=== PATIENT | female | born 1950 | race Caucasian/White ===

== ENCOUNTER 2017-09-03 00:48 | Inpatient (IN) ==
[2017-09-03] MEDS ORDERED: *HR* Morphine 2 MG/ML SYRINGE IVP PRN (06:01)
[2017-09-03] MEDS: 0.9 % Sodium Chloride 1,000 ML IVC SCH ×2 (06:29→18:48)
[2017-09-03] MEDS ORDERED: Ondansetron 4 MG/2 ML VIAL IVP PRN (08:35)
--- NOTE | 2017-09-03 08:42 | Internal Med History&Physical ---
Date of Encounter: 09/03/17 Time of Encounter: 08:40 Assessment and Plan (1) Liver cirrhosis, alcoholic Current visit: Yes Status: Acute Patient has alcoholic liver cirrhosis with some laboratory evidence of decompensated synthetic functions of the liver. INR 1.4. total bilirubin is 2.2. Qualifiers: Qualified Code(s): K70.30 - Alcoholic cirrhosis of liver without ascites (2) Diabetes mellitus type 2 in nonobese Current visit: Yes Status: Acute Sliding scale insulin every 4 hours. (3) COPD (chronic obstructive pulmonary disease) Current visit: Yes Status: Acute Stable no active wheezing continue home inhalers. Qualifiers: Qualified Code(s): J44.9 - Chronic obstructive pulmonary disease, unspecified (4) Femur fracture, right Current visit: No Status: Acute After mechanical fall. We will discuss case with orthopedics. INR is 1.4. keep NPO. Qualifiers: Qualified Code(s): S72.91XA - Unspecified fracture of right femur, initial encounter for closed fracture (5) Preoperative clearance Current visit: Yes Status: Acute Patient has a functional capacity. Clinical predictors include diabetes mellitus. She denies history of coronary artery disease. Can walk approximately 2 blocks or central flights of stairs. She denies any exertional chest pain. I will check 12 lead EKG. If OK there should be no need for further preoperative cardiac testing. Continue perioperative beta blockers (6) Hyponatremia Current visit: Yes Status: Acute Likely related to liver cirrhosis. follow. Gentle hydration while NPO Internal Medicine - H&P: HPI Chief complaint: fall, right hip pain History of present illness: Ms. Nguyen is a 66 year old female presents to the emergency room yesterday after a fall. After the patient entered her house she slipped and fell on a wooden floor on her right side. She experienced pain in the right hip region and was unable to bear weight after the fall. She denies loss of consciousness or head trauma. She denies any frequent falls. She denies any recent illnesses. She denies any focal upper or lower extremity weakness. She was found to have a right femoral neck fracture. Patient has a history of alcoholic liver cirrhosis, COPD not on home oxygen, recently diagnosed type II diabetes mellitus. She stopped drinking alcohol close to 2 years ago and is cutting down on smoking to 1 pack of cigarettes every week Past Med Surg Social Fam HX - Past Medical History Medical history: cirrhosis, GERD, hypertension, liver disease Psychiatric history: no psych history - Past Surgical History Surgical History: cholecystectomy, hysterectomy - Social History Smoking Status: Current every day smoker Packs per day: 0.1 Smokeless Tobacco Status: No Alcohol use: none Drug use: none - Family History Father History Unknown: Yes Mother Living Status: Age at : 77 Hx Family Respiratory Disorders: Yes (COPD) Internal Medicine - H&P: Meds Albuterol Sulfate [Albuterol Inhaler] 1 puff IH Q6HR PRN 09/02/17 [History] Atorvastatin [Lipitor] 20 mg PO HS 09/02/17 [History] Furosemide [Lasix] 40 mg PO DAILY 09/02/17 [History] Lactulose [Enulose] 300 ml PO TID 09/02/17 [History] Magnesium Oxide [Mgo] 400 mg PO DAILY 09/02/17 [History] Nadolol [Corgard] 40 mg PO BID 09/02/17 [History] Omeprazole [PriLOSEC] 20 mg PO BID 09/02/17 [History] Rifaximin [Xifaxan] 550 mg PO BID 09/02/17 [History] Tiotropium [Spiriva] 18 mcg IH DAILY 09/02/17 [History] Zinc Sulfate 220 mg PO DAILY 09/02/17 [History] 3 Allergy/AdvReac Type Severity Reaction Status Date / Time NSAIDS (Non-Steroidal AdvReac See Verified 09/02/17 21:41 Anti-Inflamma Comments All Systems PM: A 10-system review of systems was performed and is negative for pertinent findings except as documented above in the HPI. Review of systems: 10 point review of systems is negative except for HPI - Constitutional Vitals: Temp Pulse Resp BP Pulse Ox 98.7 F 81 16 118/64 97 09/03/17 06:36 09/03/17 06:36 09/03/17 06:36 09/03/17 06:36 09/03/17 06:36 Exam: Gen.: patient is alert oriented times 3 not in distress. Cardiac: normal S1 S2 no additional sounds are murmurs. Chest: clear to auscultation. Abdomen: soft nontender nondistended. Lower extremity no swelling mucous membranes: moist
[2017-09-03] MEDS ORDERED: Magnesium Oxide 400 MG TABLET PO SCH (09:00)
[2017-09-03] MEDS ORDERED: Tiotropium 18 MCG inhalation IH SCH (09:00)
[2017-09-03 10:20] LABS: Basophils % 0.5 %; Eosinophils # 0.1 K/mcL (0.0-0.6); Hematocrit 30.1 % (35.3-44.9); Immature Granulocytes % 0.5 % (0-4); Lymphocytes # 0.6 K/mcL (0.6-4.6); Lymphocytes % 9.9 %; Mean Corpuscular HGB Conc 33.2 g/dL (31.6-35.5); Mean Corpuscular Hemoglobin 27.9 pg (28.0-33.3); Mean Corpuscular Volume 83.8 fL (83.0-100.0); Mean Platelet Volume 11.2 fL (9.4-12.4); Monocytes # 0.6 K/mcL (0.0-1.3); Monocytes % 9.6 %; Neutrophils # 4.7 K/mcL (1.6-8.9); Platelet Count 80 K/mcL (140-400); Red Blood Count 3.59 M/mcL (3.82-4.97); Red Cell Distribution Width 17.2 % (11.5-14.5); Segmented Neutrophils % 77.5 %
[2017-09-03 10:25] LABS: INR 1.4; Prothrombin Time 15.3 Seconds (9.4-12.1)
[2017-09-03] MEDS: *HR* Morphine 2 MG/ML SYRINGE IVP PRN ×2 (10:26→16:07)
[2017-09-03 10:43] LABS: BUN/Creatinine Ratio 15 (6-26); Blood Urea Nitrogen 11 mg/dL (8-23); Calcium 8.9 mg/dL (8.6-10.3); Carbon Dioxide 23 mEq/L (23-29); Chloride 94 mEq/L (98-107); Glucose 328 mg/dL (70-105); Magnesium 1.5 mg/dL (1.6-2.6); Osmolality,Calculated 272 (280-300); Sodium 125 mEq/L (136-145); eGFR For African Americans > 60 (> 60); eGFR For Non-African Americans > 60 (> 60)
[2017-09-03] MEDS: Lactulose Oral Soln 20 GM/30 ML UDC PO SCH ×3 (10:54→21:47)
[2017-09-03] MEDS: Insulin LISPRO 300 UNITS/3 ML VIAL SQ SCH ×3 (12:39→21:02)
--- NOTE | 2017-09-03 14:42 | Cardiology Consult Note ---
<Andrew Woodson R - Last Filed: 09/03/17 14:38> Date of Encounter: 09/03/17 Time of Encounter: 14:38 Assessment and Plan (1) Pre-operative cardiovascular examination Current Visit: Yes Status: Acute Cardiac pre-op risk stratification requested for potential surgery for right femoral neck fracture. No known cardiac hx. Risk factors for CAD include tobacco abuse, DM, HTN, family hx. Prior to fall and subsequent fx, pt reports she was able to achieve 4METS without experiencing chest pain. She does endorse exertional dyspnea that she attributes to smoking/COPD, no worse than baseline. Prior ETOH abuse as well. Appears euvolemic on exam. Echo to evaluate heart structure and function. If no significant findings on echo pt would be acceptable intermediate risk from a cardiac standpoint to undergo orthopedic surgery. Will discuss with Dr. Marino as well. (2) Hyponatremia Current Visit: Yes Status: Acute Prior ETOH abuse. Management per primary team. (3) Tobacco abuse Current Visit: Yes Status: Chronic Smoking cessation counseling given. Discussion w patient/family: The assessment and plan as outlined above was discussed with the patient and/or family members who expressed understanding and agreement. All questions were answered. Thank you for involving us in the care of your patient. Please call with any questions. I will discuss all the above with Dr. Marino and make changes as necessary. History of Present Illness Consult date: 09/03/17 Requesting physician: Abimael Peña Consult reason: Pre-op risk stratification Chief complaint: hip pain History of present illness: Ms. Nguyen is a 66 year old female with PMH of liver cirrhosis, HTN, hx of ETOH abuse reportedly quit 2 years ago, COPD, recently diagnosed DMII, tobacco abuse, that presentsed to the emergency room yesterday after a fall. Pt reports she was carrying groceries into her house when she slipped and fell on a wooden floor on her right side. She experienced pain in the right hip region and was unable to bear weight after the fall. She denies loss of consciousness or head trauma. She denies any frequent falls. She was found to have a right femoral neck fracture. Cardiology has been consulted for pre-op risk stratification. Pt reports having a stress test >20 years ago at an outside facility. She denies any personal cardiac hx. She reports exertional dyspnea, but denies chest pain. She reports her sister had an CO at age 62. EKG SR. She denies LE edema. Past Med Surg Social Fam HX - Past Medical History Medical history: cirrhosis, GERD, hypertension, liver disease Psychiatric history: no psych history - Past Surgical History Surgical History: cholecystectomy, hysterectomy - Social History Smoking Status: Current every day smoker Packs per day: 0.1 Smokeless Tobacco Status: No Alcohol use: none Drug use: none - Family History Father History Unknown: Yes Mother Living Status: Age at : 77 Hx Family Respiratory Disorders: Yes (COPD) Medications and Allergies Albuterol Sulfate [Albuterol Inhaler] 1 puff IH Q6HR PRN 09/02/17 [History] Atorvastatin [Lipitor] 20 mg PO HS 09/02/17 [History] Furosemide [Lasix] 40 mg PO DAILY 09/02/17 [History] Lactulose [Enulose] 30 ml PO TID 09/02/17 [History] Magnesium Oxide [Mgo] 400 mg PO DAILY 09/02/17 [History] Nadolol [Corgard] 40 mg PO BID 09/02/17 [History] Omeprazole [PriLOSEC] 20 mg PO BID 09/02/17 [History] Rifaximin [Xifaxan] 550 mg PO BID 09/02/17 [History] Tiotropium [Spiriva] 18 mcg IH DAILY 09/02/17 [History] Zinc Sulfate 220 mg PO DAILY 09/02/17 [History] 3 Allergy/AdvReac Type Severity Reaction Status Date / Time NSAIDS (Non-Steroidal AdvReac See Verified 09/03/17 10:01 Anti-Inflamma Comments All Systems Review: A 10-system review of systems was performed and is negative for pertinent findings except as documented above in the HPI. - Cardiovascular Cardiovascular: as per HPI, dyspnea on exertion - Respiratory Respiratory: dyspnea Physical Examination Vital Signs Temp Pulse Resp BP Pulse Ox 09/03/17 10:28 98.6 F 73 16 133/64 97 09/03/17 10:00 97 09/03/17 06:36 98.7 F 81 16 118/64 97 09/03/17 02:36 98.8 F 73 18 116/59 96 Intake and Output 09/02/17 09/03/17 09/03/17 23:59 07:59 15:59 Other: Weight 55.792 kg Blood Glucose* 328 Patient Weight 09/03/17 23:59 Weight 55.792 kg General: Conversant, No Apparent Distress HEENT: Atraumatic, Normocephaly, Mucus Membranes Moist Neck: No JVD, Normal carotid pulses Cardiac: Reg Rate and Rhythm, Normal S1 and S2, No Murmur Lungs: Normal Breath Sounds, No Wheeze, Rales, Rhonchi Neuro: Alert and responsive, No focal deficits noted Abdomen: Soft, Non-Tender Skin: No rashes noted on visualized skin Musculoskeletal: No Chest Wall Tenderness Extremities: No Clubbing, No Cyanosis, No Edema, Normal Pulses Results 09/03/17 10:01 09/03/17 10:01 Lab Results 09/03/17 09/03/17 09/03/17 10:01 10:01 10:01 WBC 6.0 Hgb 10.0 L Hct 30.1 L Plt Count 80 L INR 1.4 APTT 32.0 Sodium 125 L Potassium 4.0 Chloride 94 L Carbon Dioxide 23 BUN 11 Creatinine 0.74 Glucose 328 H Calcium 8.9 Magnesium 1.5 L Short CBC 09/03/17 Range/Units 10:01 WBC 6.0 (4.3-11.1) K/mcL Hgb 10.0 L (11.5-15.4) g/dL Hct 30.1 L (35.3-44.9) % Plt Count 80 L (140-400) K/mcL Neutrophils # 4.7 (1.6-8.9) K/mcL BMP 09/03/17 Range/Units 10:01 Sodium 125 L (136-145) mEq/L Potassium 4.0 (3.5-5.1) mEq/L Chloride 94 L (98-107) mEq/L Carbon Dioxide 23 (23-29) mEq/L BUN 11 (8-23) mg/dL Creatinine 0.74 (0.60-1.20) mg/dL Glucose 328 H (70-105) mg/dL Calcium 8.9 (8.6-10.3) mg/dL Active Medications Albuterol Sulfate (Albuterol Inhaler) 1 puff IH [id number] PRN PRN Reason: Shortness Of Breath Stop: 03/05/18 10:01 Atorvastatin Calcium (Lipitor) 20 mg PO HS [facility] Stop: 03/05/18 21:01 Famotidine (Pepcid) 10 mg IVP Q12HR [facility] PRN Reason: Protocol Stop: 03/05/18 18:01 Sodium Chloride (0.9 % Sodium Chloride) 1,000 mls @ 80 mls/hr IVC .[id number] [facility] Stop: 03/05/18 06:16 Last Admin: 09/03/17 06:29 Dose: 80 mls/hr Insulin Human Lispro (Humalog) 0 units SQ Q4HR [facility] PRN Reason: Protocol Stop: 03/05/18 12:01 Last Admin: 09/03/17 12:39 Dose: 10 units Lactulose (Lactulose) 20 gm PO TID [facility] Stop: 03/05/18 09:01 Last Admin: 09/03/17 13:43 Dose: Not Given Magnesium Oxide (Mag-Ox) 400 mg PO DAILY [facility] PRN Reason: Protocol Stop: 03/05/18 09:01 Last Admin: 09/03/17 10:55 Dose: Not Given Morphine Sulfate (Morphine Sulfate) 2 mg IVP Q4H PRN PRN Reason: Pain Stop: 03/05/18 06:02 Last Admin: 09/03/17 10:26 Dose: 2 mg Nadolol (Corgard) 40 mg PO BID [facility] Stop: 03/05/18 11:29 Last Admin: 09/03/17 11:42 Dose: 40 mg Omeprazole (Prilosec) 20 mg PO BID [facility] PRN Reason: Protocol Stop: 03/05/18 09:01 Last Admin: 09/03/17 10:55 Dose: Not Given Ondansetron HCl (Zofran) 4 mg IVP Q6HR PRN; Protocol PRN Reason: Nausea Stop: 03/05/18 08:36 Rifaximin (Xifaxan) 550 mg PO BID [facility] Stop: 03/05/18 09:01 Last Admin: 09/03/17 10:56 Dose: Not Given Tiotropium [place] (Spiriva) 18 mcg IH DAILY [facility] Stop: 03/05/18 09:01 Last Admin: 09/03/17 10:50 Dose: Not Given - EKG Interpretation EKG results cardiology: personally reviewed (SR) Consult Discharge Plan - Plan Referrals: NONE,PCP [Primary Care Provider] - <Marion Marino - Last Filed: 09/03/17 20:14> Date of Encounter: 09/03/17 - Attending Attestation I examined this patient and my medical decision-making was reviewed with the MAIL COURIER. I agree with the documented findings, disposition and treatment plan as described. We have been asked by orthopedic surgery to provide a cardiovascular risk stratification for Ms. Nguyen prior to potential surgery for a right femoral neck fracture. She presented yesterday after a mechanical fall. She denies any cardiac history. She has not had any recent chest pain or palpitations. She admits to being able to achieve at least 4 mets prior to this event. Risk factors for cardiovascular disease include smoking, diabetes, hypertension and family history. ECG demonstrates no concerning findings. Recommend echo for risk stratification. Ischemic testing does not appear warranted and would likely delay her surgical procedure. According to both RCRI and NSQIP, patient is at low risk for CV complications. Assessment and Plan Discussion w patient/family: The assessment and plan as outlined above was discussed with the patient and/or family members who expressed understanding and agreement. All questions were answered. Thank you for involving us in the care of your patient. Please call with any questions. History of Present Illness History of present illness: Ms. Nguyen is a 66 year old female All Systems Review: A 10-system review of systems was performed and is negative for pertinent findings except as documented above in the HPI. Physical Examination Vital Signs, Last 4 Hours Temp Pulse Resp BP Pulse Ox 09/03/17 19:00 98.8 F 74 16 101/59 98 Results 09/03/17 10:01 09/03/17 10:01 Lab Results 09/03/17 09/03/17 09/03/17 10:01 10:01 10:01 WBC 6.0 Hgb 10.0 L Hct 30.1 L Plt Count 80 L INR 1.4 APTT 32.0 Sodium 125 L Potassium 4.0 Chloride 94 L Carbon Dioxide 23 BUN 11 Creatinine 0.74 Glucose 328 H Calcium 8.9 Magnesium 1.5 L
--- NOTE | 2017-09-03 16:41 | Orthopedic Consult Note ---
Date of Encounter: 09/03/17 Time of Encounter: 16:33 History of Present Illness Chief complaint: Right hip pain HPI: Ms. Nguyen is a 66 year old female who slipped and fell yesterday evening when she got into her daughter's home and she had some water on her feet. She slipped on a hardwood floor, landing on her right hip. She had immediate pain and was unable to ambulate or weight-bear. She was brought to [facility] emergency room where x-rays revealed evidence of a right hip fracture. She was transferred to [facility] for definitive treatment. Patient does have a significant past medical history of alcohol related cirrhosis with the sequelae of such including esophageal varices, coagulopathy, and hyponatremia amongst others. The patient also was recently diagnosed with type 2 diabetes. Please see the completed history and physical examination form for details. Pertinent orthopedic examination reveals a thin white female in moderate distress secondary to right hip pain. No gross shortening or rotational deformities identified. Distal neurosensory exam appears to be grossly intact. Laboratory data includes a hemoglobin of 10.0, platelets of 80, a pro time of 15.3 a sodium of 125 current blood sugar of 213 and elevated bilirubin of 2.2. X-rays reveal a intertrochanteric type fracture of the right proximal femur. There is only mild displacement mostly manifested by some rotational changes and no wart appears to be some shortening. Patient does have rather significant vascular calcifications. Impression: Acute intertrochanteric fracture right proximal femur in female with significant alcohol-related cirrhosis Recommendation: I discussed with the patient and family treatment options including nonoperative management as well as surgical intervention. I do not think that nonoperative management is viable treatment for her as this would require prolonged bed rest which would create some onset of problems including skin breakdown and pulmonary complications. The other option would be to proceed with a trochanteric femoral nail stabilization. We discussed the surgical procedure as well as the potential risks and complications including but not limited to bleeding, infection, blood clots, nerve injury, stiffness, malunion, nonunion, leg length or rotational deformities and the distinct possibility of avascular necrosis. Patient and family understand have requested we proceed with intramedullary nailing of her right hip. She has signed informed consent. Awaiting a echocardiogram and final risk stratification by cardiology to proceed with surgical dimension, and scheduled for later today when operating time is available. Thank you very much for allowing me to see care 4 Mrs. Nguyen. Sincerely, Laci Yap,DO Past Med Surg Social Fam HX - Past Medical History Medical history: cirrhosis, GERD, hypertension, liver disease Psychiatric history: no psych history - Past Surgical History Surgical History: cholecystectomy, hysterectomy - Social History Smoking Status: Current every day smoker Packs per day: 0.1 Smokeless Tobacco Status: No Alcohol use: none Drug use: none - Family History Father History Unknown: Yes Mother Living Status: Age at : 77 Hx Family Respiratory Disorders: Yes (COPD) Medications and Allergies Albuterol Sulfate [Albuterol Inhaler] 1 puff IH Q6HR PRN 09/02/17 [History] Atorvastatin [Lipitor] 20 mg PO HS 09/02/17 [History] Furosemide [Lasix] 40 mg PO DAILY 09/02/17 [History] Lactulose [Enulose] 30 ml PO TID 09/02/17 [History] Magnesium Oxide [Mgo] 400 mg PO DAILY 09/02/17 [History] Nadolol [Corgard] 40 mg PO BID 09/02/17 [History] Omeprazole [PriLOSEC] 20 mg PO BID 09/02/17 [History] Rifaximin [Xifaxan] 550 mg PO BID 09/02/17 [History] Tiotropium [Spiriva] 18 mcg IH DAILY 09/02/17 [History] Zinc Sulfate 220 mg PO DAILY 09/02/17 [History] 3 Allergy/AdvReac Type Severity Reaction Status Date / Time NSAIDS (Non-Steroidal AdvReac See Verified 09/03/17 10:01 Anti-Inflamma Comments All Systems Reviewed: A 10-system review of systems was performed and is negative for pertinent findings except as documented above in the HPI. Physical Exam - Constitutional Vitals: Temp Pulse Resp BP Pulse Ox 98.4 F 78 16 127/68 98 09/03/17 14:00 09/03/17 14:00 09/03/17 14:00 09/03/17 14:00 09/03/17 14:00 Results - Labs Result Diagrams: 09/03/17 10:01 09/03/17 10:01 Labs: Abnormal lab results RBC 3.59 M/mcL (3.82-4.97) L 09/03/17 10:01 Hgb 10.0 g/dL (11.5-15.4) L 09/03/17 10:01 Hct 30.1 % (35.3-44.9) L 09/03/17 10:01 MCH 27.9 pg (28.0-33.3) L 09/03/17 10:01 RDW 17.2 % (11.5-14.5) H 09/03/17 10:01 Plt Count 80 K/mcL (140-400) L 09/03/17 10:01 PT 15.3 Seconds (9.4-12.1) H 09/03/17 10:01 Sodium 125 mEq/L (136-145) L 09/03/17 10:01 Chloride 94 mEq/L (98-107) L 09/03/17 10:01 Glucose 328 mg/dL (70-105) H 09/03/17 10:01 POC Glucose 308 (58-89) H 09/03/17 04:27 Calculated Osmolality 272 (280-300) L 09/03/17 10:01 Magnesium 1.5 mg/dL (1.6-2.6) L 09/03/17 10:01 H & H 09/03/17 Range/Units 10:01 Hgb 10.0 L (11.5-15.4) g/dL Hct 30.1 L (35.3-44.9) % All other labs normal. Consult Discharge Plan - Plan Referrals: NONE,PCP [Primary Care Provider] -
[2017-09-03] MEDS ORDERED: Famotidine 20 MG/2 ML VIAL IVP SCH (18:00)
--- NOTE | 2017-09-03 21:32 | Anesthesia Evaluation PreOp ---
Date of Encounter: 09/03/17 Time of Encounter: 22:03 - Past History Planned Operation: Right hip TFN Cardiac History: HTN, Hyperlipidemia Pulmonary History: Smoker SPUDDER History: Denies Any Significant HX Other Medical History: Hepatic (cirrhosis; INR 1.4), Diabetes Type II, GERD (hx of esophageal varices s/p banding), Other (thrombocytopenia; slight coagulopathy (INR 1.4)) Anesthesia History: No Prior Anesthetic Complications, Past Anesthesia ( cholecystectomy, hysterectomy, breast lump resection) Alcohol Use: none Drug use: none Medications and Allergies Albuterol Sulfate [Albuterol Inhaler] 1 puff IH Q6HR PRN 09/02/17 [History] Atorvastatin [Lipitor] 20 mg PO HS 09/02/17 [History] Furosemide [Lasix] 40 mg PO DAILY 09/02/17 [History] Lactulose [Enulose] 30 ml PO TID 09/02/17 [History] Magnesium Oxide [Mgo] 400 mg PO DAILY 09/02/17 [History] Nadolol [Corgard] 40 mg PO BID 09/02/17 [History] Omeprazole [PriLOSEC] 20 mg PO BID 09/02/17 [History] Rifaximin [Xifaxan] 550 mg PO BID 09/02/17 [History] Tiotropium [Spiriva] 18 mcg IH DAILY 09/02/17 [History] Zinc Sulfate 220 mg PO DAILY 09/02/17 [History] 3 Allergy/AdvReac Type Severity Reaction Status Date / Time NSAIDS (Non-Steroidal AdvReac See Verified 09/03/17 10:01 Anti-Inflamma Comments - Meds/Allergy Pre-op Review Medications Reviewed: Yes Allergies Reviewed: Yes Beta Blockers on Current Med List: Yes (nadolol) If Beta Blockers taken, Date/Time (Last Dose taken): 09-03-17 nadolol 21:02 Anesthesia Results - Labs 09/03/17 10:01 09/03/17 10:01 - Imaging EKG: report reviewed, image reviewed (SR) Additional studies: Per Cardiology consult: We have been asked by orthopedic surgery to provide a cardiovascular risk stratification for Ms. Nguyen prior to potential surgery for a right femoral neck fracture. She presented yesterday after a mechanical fall. She denies any cardiac history. She has not had any recent chest pain or palpitations. She admits to being able to achieve at least 4 mets prior to this event. Risk factors for cardiovascular disease include smoking, diabetes, hypertension and family history. ECG demonstrates no concerning findings. Recommend echo for risk stratification. Ischemic testing does not appear warranted and would likely delay her surgical procedure. According to both RCRI and NSQIP, patient is at low risk for CV complications. Anesthesia Exam Last Vital Signs Temp 98.8 F 09/03/17 19:00 Pulse 74 09/03/17 19:00 Resp 16 09/03/17 19:00 BP 101/59 09/03/17 19:00 Pulse Ox 98 09/03/17 19:00 - HEENT Pupil (Motor): Pupils equal, EOMI Mallampati: III Teeth: Edentulous Oral Opening: Greater than 3 - SPUDDER LOC: Oriented - Cardiac Rhythm: Regular Murmur: None - Pulmonary Breath Sounds: bilateral Clear Respiratory Effort: Symmetrical Anesthesia Assess/Plan ASA Score: 4 Modified [place] Scale for Level of Consciousness: Cooperative, oriented, and tranquil Anesthetic Plan: General Monitoring Plan: Standard Monitors Recovery Plan: PACU
[2017-09-03] MEDS ORDERED: *HR* Propofol 200 MG/20 ML VIAL IVP ONE (21:41)
[2017-09-03] MEDS ORDERED: Lidocaine -MPF 2% 2 ML VIAL ONE (21:41)
[2017-09-03] MEDS ORDERED: *HR* Succinylcholine 200 MG/10 ML VIAL IVP ONE (21:42)
[2017-09-03] MEDS ORDERED: *HR* Midazolam HCl 2 MG/2 ML VIAL ONE (21:46)
[2017-09-03] MEDS ORDERED: *HR* FentaNYL (PF) 100 MCG/2 ML VIAL ONE (21:46)
[2017-09-03] MEDS ORDERED: *HR* HYDROmorphone (PF) 1 MG/ML SYRINGE IVP PRN (21:49)
[2017-09-03] MEDS ORDERED: Albuterol 2.5 MG/3 ML NEBULIZER IH ONE (21:52)
[2017-09-03] MEDS ORDERED: Albuterol 2.5 MG/3 ML NEBULIZER ONE (21:52)
[2017-09-03] MEDS ORDERED: Ringers Solution, Lactated 1,000 ML ONE (21:52)
[2017-09-03] MEDS ORDERED: *HR* Phenylephrine 10 MG/ML VIAL ONE (22:39)
[2017-09-03] MEDS ORDERED: *HR* Rocuronium Bromide 50 MG/5 ML VIAL ONE (22:46)
[2017-09-03] MEDS ORDERED: Neostigmine Methylsulfate 3 MG/3 ML SYRINGE ONE (22:46)
[2017-09-03] MEDS ORDERED: Ondansetron 4 MG/2 ML VIAL ONE (22:51)
[2017-09-03] MEDS ORDERED: Dexamethasone 4 MG/ML VIAL ONE (22:51)
[2017-09-03] MEDS ORDERED: EPHEDrine 50 MG/ML VIAL ONE (22:57)
--- NOTE | 2017-09-04 00:25 | Operative Note ---
Date of procedure: 09/03/17 Pre-op diagnosis: Intertrochanteric fracture right hip Post-op diagnosis: same Procedure: #1. Intramedullary nailing right hip #2. Fluoroscopic guidance for IM nailing right hip Implants: Synthes 11 mm x 170 mm x 130 degree angle TFNA, 11 mm x 95 mm TFNA helical blade and a 34 mm x 5.0 mm distal locking screw Complications: None Anesthesia: GETA Surgeon: Laci Yap Was there an physician's assistant present: No Estimated blood loss (cc): 50 Specimen: None Condition: stable Disposition: PACU Procedure in Detail: Gross findings: Preoperative x-rays revealed a intertrochanteric fracture of the right proximal femur. There was some varus angulation and rotation. Intraoperatively fracture was able to be reduced into anatomic position and stabilized with a trochanteric femoral nail. Anatomic congregation was maintained as verified with multiplanar fluoroscopy. Procedure: Patient was taken to the operating room and while in the hospital bed was administered general anesthesia. With adequate level of anesthesia obtained patient was transferred to the [facility] fracture table. Right lower extremity was placed in longitudinal traction left lower extremity was positioned out of harm's way and well leg valderrama. Fluoroscopy was now introduced and utilized to guide the preliminary reduction with a combination of traction ADD duction and internal rotation. Once adequate reduction had been obtained the right hip was prepped and draped in normal standard fashion for surgery. Approximately 3 cm incision was created above the level of the trochanter. Dissection was carried through subtendinous tissue down the level of the tensor fascia cony which was split. Dissection was carried directly down to the tip of the trochanter. Guidewire was passed to the tip of the trochanter down the femoral canal. The coring type reamer was used to open up the proximal trochanter. The selected nail was then placed onto the insertion jig, passed over the wire and seated into position. At this time the 130 degree guide was used to create an incision over the lateral femur and the guide was positioned up against the lateral cortex. Guide pin was then placed in a central position as verified with multiplane fluoroscopy. Pin length was measured and a 95 mm helical blade was selected. Head and neck were then reamed. Helical blade was then placed and impacted and seated into position and then locked above. Fracture was compressed with verification with fluoroscopy. At this time utilizing the drill guide a distal locking screw was placed. Final fluoroscopic views were now taken after the insertion jig was removed. Excellent reduction and implant position was noted. At this time wounds were then irrigated and closed with #1 Vicryl in the fascia followed by 2-0 undyed Vicryl immediate subtendinous tissue and then skin closure with 30 strata Ficks. Skin glue was applied followed by operative foam. Patient was then transferred from the operating room table to the hospital bed. Patient was then awakened from anesthesia extubated and transported to the postanesthesia care unit in stable and satisfactory condition. All sponge and needle evidence for counts are correct. No specimens were sent for pathology.
--- NOTE | 2017-09-04 00:47 | Anesthesia Evaluation Post Op ---
Date of Encounter: 09/04/17 Time of Encounter: 00:46 - Vital Signs Vital Signs: Last Vital Signs Temp 97.4 F L 09/04/17 00:30 Pulse 64 09/04/17 00:30 Resp 20 09/04/17 00:30 BP 103/53 09/04/17 00:30 Pulse Ox 92 09/04/17 00:30 - Lungs Lungs: Clear Ascult./Percussion - Airway Airway: Non-obstructed - Cardiovascular Regular Rate - Mental Status Mental Status: Alert & Oriented, Answers Appropriately - Pain Pain Scale: 5 - Nausea Vomiting Nausea Vomiting: Not Present - Hydration Hydration: Ice chips, Astudillo catheter - Discharge PostOp Status: Transfer Patient to floor
[2017-09-04] MEDS ORDERED: Ondansetron 4 MG/2 ML VIAL IVP PRN (00:57)
[2017-09-04] MEDS: ceFAZolin 2,000 MG in Water for inj. (sterile) 20 ML IVP SCH ×2 (03:02→09:31)
[2017-09-04] MEDS: *HR* OxyCODONE Immed Rel 5 MG TABLET PO PRN ×4 (03:11→23:35)
[2017-09-04] MEDS: Famotidine 20 MG/2 ML VIAL IVP SCH ×2 (05:28→17:40)
[2017-09-04] MEDS: Insulin LISPRO 300 UNITS/3 ML VIAL SQ SCH ×5 (05:29→20:50)
[2017-09-04] MEDS: Tiotropium 18 MCG inhalation IH SCH (07:36)
[2017-09-04] MEDS: Lactulose Oral Soln 20 GM/30 ML UDC PO SCH ×3 (09:31→20:49)
[2017-09-04] MEDS: Magnesium Oxide 400 MG TABLET PO SCH (09:31)
[2017-09-04] MEDS: RIFAXIMIN 550 MG PO SCH ×2 (09:32→20:51)
--- NOTE | 2017-09-04 10:23 | Electrocardiograph Report ---
[place] [id number] Test Date: 2017-09-03 Pat Name: Shannan Nguyen Department: 114 Room: [facility] Gender: F Damage Cutter: : 1950 Requested By: Abimael Peña Order Number: [id number] Reading MD: Kwasi Rollins DO Measurements Intervals Palmer Rate: 70 P: 37 MA: 143 QRS: 0 QRSD: 110 T: 20 QT: 429 QTc: 450 Interpretive Statements SINUS RHYTHM NONSPECIFIC ST-T CHANGES Electronically Signed On 09-04-2017 10:21:46 EST by Kwasi Rollins DO
[2017-09-04] MEDS ORDERED: Dextrose Gel 15 GM/37.5 ML TUBE PO PRN ×2 (13:14)
[2017-09-04] MEDS ORDERED: D5% in Water 1,000 ML IVC PRN (13:14)
[2017-09-04] MEDS ORDERED: *HR* Dextrose 50 % in Water (Syg) 50 ML SYRINGE IVP PRN (13:14)
[2017-09-04] MEDS: 0.9 % Sodium Chloride 1,000 ML IVC SCH ×2 (15:59→16:02)
--- NOTE | 2017-09-04 17:26 | Internal Med Progress Note ---
Date of Encounter: 09/04/17 Time of Encounter: 17:24 - Assessment and plan (1) Intertrochanteric fracture of right femur Current Visit: Yes Status: Acute Assessment and plan: Status post nailing done today. Patient doing well. Management per Ortho. Qualifiers: Encounter type: initial encounter Fracture type: closed Fracture alignment: nondisplaced Qualified Code(s): S72.144A - Nondisplaced intertrochanteric fracture of right femur, initial encounter for closed fracture (2) Hyponatremia Current Visit: Yes Status: Acute Assessment and plan: Unsure of patient baseline. Will give gentle IV hydration to avoid over correction in case she runs this low normally. She does not seem to have any change in mental status to suggest acute drop in sodium. (3) Diabetes mellitus type 2 in nonobese Current Visit: Yes Status: Acute Assessment and plan: Diabetic diet, ISS (4) Liver cirrhosis, alcoholic Current Visit: Yes Status: Acute Qualifiers: Qualified Code(s): K70.30 - Alcoholic cirrhosis of liver without ascites (5) COPD (chronic obstructive pulmonary disease) Current Visit: Yes Status: Acute Qualifiers: Qualified Code(s): J44.9 - Chronic obstructive pulmonary disease, unspecified (6) Tobacco abuse Current Visit: Yes Status: Chronic - Subjective Interval history: No complaints, no acute events. Patient status post IM nailing of right hip for right femur fracture, done today. - Constitutional Vitals: Temp Pulse Resp BP Pulse Ox 98.2 F 78 16 103/50 91 09/04/17 16:33 09/04/17 16:33 09/04/17 16:33 09/04/17 16:33 09/04/17 16:33 - Head Head exam: Present: atraumatic, normocephalic - Eye Eye exam: Present: PERRL, conjuntiva pink, sclera anicteric Pupils: Present: PERRL - Neck Neck exam general surgery: Present: supple, trachea midline. Absent: lymphadenopathy - Respiratory Respiratory exam: Present: CTAB. Absent: accessory muscle use, rales, rhonchi, wheezes - Cardiovascular Cardiovascular exam: Present: RRR, +S1, +S2. Absent: diastolic murmur, gallop, rubs, systolic murmur - GI/Abdominal GI/Abdominal exam: Present: normal bowel sounds, soft, no peritoneal signs. Absent: distended, tenderness - Extremities Exam Extremities exam: Present: warm, radial pulses palpable and symmetrical. Absent : calf tenderness, cyanotic, pedal edema - Neurological Exam Neurological exam: Present: CN II-XII intact, oriented X3, no focal deficits. Absent: pronater drift, facial droop, speech deficit - Skin Skin exam: Present: dry, intact Internal Medicine: Result - Labs CBC & Chem 7: 09/03/17 10:01 09/03/17 10:01 - ABG Interpretation ABG results: PT/INR, D-dimer PT 15.3 Seconds (9.4-12.1) H 09/03/17 10:01 - Impressions Impressions Echocardiogram 09/03/17 16:12 Impressions: LVEF 60-65%. Mild left ventricular diastolic dysfunction. Normal right ventricular structure and function. No significant valvular dysfunction. No pulmonary hypertension. Left Ventricular Wall Motion: Rest Echo Findings All wall segments showed normal motion. Findings: Study Quality * Technically somewhat challenging - patient laying supine for exam. Images are angulated. ECG Findings * Normal sinus rhythm. Left Ventricle * LVEF 60-65%. * Normal LV chamber size, wall thickness and function. * Mild left ventricular diastolic dysfunction. Right Ventricle * Normal right ventricular structure and function. Left Atrium * Normal left atrial size. Right Atrium * Normal right atrial size. Aortic Valve * No aortic regurgitation. * No aortic stenosis. * Aortic valve not well visualized. Mitral Valve * Normal mitral valve structure. * No mitral regurgitation. * No mitral stenosis. Tricuspid Valve * Tricuspid valve not well visualized. * Trace tricuspid regurgitation. * Estimated RA pressure is . mmHg. * Estimated RVSP is 20 mmHg. * No pulmonary hypertension. Pulmonic Valve * Pulmonic valve is not well visualized. * No pulmonic stenosis. * No pulmonic regurgitation. Pulmonary Artery * Pulmonary artery not well visualized. Aorta * Normally sized aortic root. Pericardium * There is no pericardial effusion present. Interatrial Septum * No evidence of PFO by color Doppler. IVC * The IVC is not dilated. Fluoroscopy 09/03/17 22:45 IMPRESSION: Intraprocedural fluoroscopic spot images as above. See separate procedure report for more information. D/ / Zeeshan Sanchez MD / Zeeshan Sanchez MD Interpreting Provider: Zeeshan Sanchez MD - VTE Documentation of Mechanical Device: Venous foot pump, device Consult Discharge Plan - Plan Referrals: NONE,PCP [Primary Care Provider] -
--- NOTE | 2017-09-04 19:02 | Orthopedics Progress Note ---
Date of Encounter: 09/04/17 Time of Encounter: 19:00 Subjective Principal diagnosis: Right hip fracture Interval history: 09/04/2017. Patient is postoperative day #1 IM nailing right hip fracture. She is having anticipated pain and soreness about the hip. Otherwise feeling fairly well. Vital signs are stable. She is afebrile. She was are clean and dry. Neurovascular exam is stable. Impression: POD #1 IM nailing right intertrochanteric hip fracture Recommendation: Patient can be weightbearing as tolerated and ambulate ad vicky. PT and OT consults. industrial services worker for discharge planning, possible rehabilitation stay indicated. Patient can shower with intact dressings. Objective Vital signs: Vital Signs Temp Pulse Resp BP Pulse Ox 09/04/17 16:33 98.2 F 78 16 103/50 91 09/04/17 11:54 98.1 F 73 16 105/59 91 09/04/17 07:36 16 94 09/04/17 07:17 98.5 F 77 18 96/57 92 09/04/17 04:49 98.3 F 65 19 107/61 94 09/04/17 01:42 98.4 F 65 19 102/60 93 09/04/17 00:52 98.4 F 64 18 106/63 93 09/04/17 00:30 97.4 F L 64 20 103/53 92 09/04/17 00:20 74 20 106/56 92 09/04/17 00:10 70 20 115/52 92 09/04/17 00:00 98.1 F 73 20 133/62 99 Intake and Output 09/04/17 09/04/17 09/04/17 07:59 15:59 23:59 Intake Total 560 / 560 Output Total 225 / 225 250 / 250 Balance -205 / -205 310 / 310 Intake: IV Fluids Ancef 2,000 MG In Water for inj . (sterile) 20 ML @ 200 mls/hr IVP Q8H [facility] Rx#:[id number] Oral 560 / 560 Output: Urine 250 / 250 Estimated Blood Loss 50 / 50 Urine Amount (Catheter) 175 / 175 Other: Meal Lunch Percent of Meal Consumed 95% Blood Glucose* 255 351 430 - Labs CBC & BMP: 09/03/17 10:01 09/03/17 10:01 Labs: Abnormal lab results RBC 3.59 M/mcL (3.82-4.97) L 09/03/17 10:01 Hgb 10.0 g/dL (11.5-15.4) L 09/03/17 10:01 Hct 30.1 % (35.3-44.9) L 09/03/17 10:01 MCH 27.9 pg (28.0-33.3) L 09/03/17 10:01 RDW 17.2 % (11.5-14.5) H 09/03/17 10:01 Plt Count 80 K/mcL (140-400) L 09/03/17 10:01 PT 15.3 Seconds (9.4-12.1) H 09/03/17 10:01 Sodium 125 mEq/L (136-145) L 09/03/17 10:01 Chloride 94 mEq/L (98-107) L 09/03/17 10:01 Glucose 328 mg/dL (70-105) H 09/03/17 10:01 POC Glucose 351 (58-89) H 09/04/17 11:57 Calculated Osmolality 272 (280-300) L 09/03/17 10:01 Magnesium 1.5 mg/dL (1.6-2.6) L 09/03/17 10:01 - VTE Documentation of Mechanical Device: Venous foot pump, device Consult Discharge Plan - Plan Referrals: NONE,PCP [Primary Care Provider] -
[2017-09-04] MEDS ORDERED: Insulin DETEMIR 100 UNIT/ML X5UNITS SQ SCH (21:00)
[2017-09-05 04:30] LABS: Basophils % 0.2 %
[2017-09-05 04:33] LABS: Eosinophils # 0.1 K/mcL (0.0-0.6); Eosinophils % 0.7 %; Hematocrit 27.3 % (35.3-44.9); Hemoglobin 8.5 g/dL (11.5-15.4); Immature Granulocytes % 0.9 % (0-4); Lymphocytes # 0.8 K/mcL (0.6-4.6); Lymphocytes % 9.4 %; Mean Corpuscular HGB Conc 31.1 g/dL (31.6-35.5); Mean Corpuscular Volume 86.7 fL (83.0-100.0); Mean Platelet Volume 10.6 fL (9.4-12.4); Monocytes # 1.1 K/mcL (0.0-1.3); Monocytes % 13.3 %; Neutrophils # 6.2 K/mcL (1.6-8.9); Red Blood Count 3.15 M/mcL (3.82-4.97); Red Cell Distribution Width 17.5 % (11.5-14.5); Segmented Neutrophils % 75.5 %
[2017-09-05] MEDS: 0.9 % Sodium Chloride 1,000 ML IVC SCH (04:33)
[2017-09-05] MEDS: Famotidine 20 MG/2 ML VIAL IVP SCH ×2 (04:33→16:58)
[2017-09-05 04:41] LABS: BUN/Creatinine Ratio 17 (6-26); Blood Urea Nitrogen 15 mg/dL (8-23); Calcium 8.6 mg/dL (8.6-10.3); Carbon Dioxide 21 mEq/L (23-29); Chloride 101 mEq/L (98-107); Glucose 344 mg/dL (70-105); Osmolality,Calculated 286 (280-300); Platelet Count 78 K/mcL (140-400); Potassium 3.9 mEq/L (3.5-5.1); Sodium 131 mEq/L (136-145); eGFR For African Americans > 60 (> 60); eGFR For Non-African Americans > 60 (> 60)
[2017-09-05] MEDS: *HR* OxyCODONE Immed Rel 5 MG TABLET PO PRN ×3 (05:16→23:58)
[2017-09-05] MEDS: Tiotropium 18 MCG inhalation IH SCH (08:22)
[2017-09-05] MEDS: Insulin LISPRO 300 UNITS/3 ML VIAL SQ SCH ×8 (08:36→20:39)
[2017-09-05] MEDS: Magnesium Oxide 400 MG TABLET PO SCH (08:37)
[2017-09-05] MEDS: Lactulose Oral Soln 20 GM/30 ML UDC PO SCH ×3 (08:37→20:40)
[2017-09-05] MEDS ORDERED: Insulin DETEMIR 100 UNIT/ML X5UNITS SQ ONE (09:44)
[2017-09-05] MEDS: RIFAXIMIN 550 MG PO SCH ×2 (10:31→20:36)
--- NOTE | 2017-09-05 15:45 | Orthopedics Progress Note ---
Date of Encounter: 09/05/17 Time of Encounter: 15:43 Subjective Principal diagnosis: Right hip fracture Interval history: 09/04/2017. Patient is postoperative day #1 IM nailing right hip fracture. She is having anticipated pain and soreness about the hip. Otherwise feeling fairly well. Vital signs are stable. She is afebrile. She was are clean and dry. Neurovascular exam is stable. Impression: POD #1 IM nailing right intertrochanteric hip fracture Recommendation: Patient can be weightbearing as tolerated and ambulate ad vicky. PT and OT consults. multimedia services coordinator for discharge planning, possible rehabilitation stay indicated. Patient can shower with intact dressings. 09/05/2017. Patient is postoperative day #2 IM nailing right hip. Pain is a little bit worse today but otherwise doing well. She has been ambulatory. She has been sitting in a chair quite a bit. Vital signs are stable. Patient is afebrile. Incision clean and dry. Her vascular exam is stable. Hemoglobin is 8.5. White blood cell count 8.2. Platelet count is 78 and stable. Sodium is improved. Blood sugars are still elevated, above 300. Impression: POD #2 IM nailing right hip Recommendation: Orthopedic status is stable. Patient can be weightbearing as tolerated. Patient can shower with an intact dressing. No bathing or soaking. No incision care is required other than maintaining the bio occlusive dressing. We will need to see me back in about 2-3 weeks' time or sooner should any problems arise. Objective Vital signs: Vital Signs Temp Pulse Resp BP Pulse Ox 09/05/17 14:47 99.0 F 76 18 113/64 93 09/05/17 11:19 98.6 F 77 18 104/49 95 09/05/17 08:22 16 95 09/05/17 07:06 98.8 F 89 18 114/54 95 09/05/17 03:53 98.6 F 80 18 102/50 94 09/04/17 23:33 98.6 F 74 18 105/52 95 09/04/17 20:33 93 09/04/17 20:17 98.4 F 78 17 118/67 93 09/04/17 16:33 98.2 F 78 16 103/50 91 Intake and Output 09/04/17 09/05/17 09/05/17 23:59 07:59 15:59 Intake Total 300 / 300 1000 / 1000 600 / 600 Balance 300 / 300 1000 / 1000 600 / 600 Intake: IV Fluids 1000 / 1000 0.9 % Sodium Chloride 1,000 ML 1000 / 1000 @ 80 mls/hr IVC .[id number] [facility] Rx #:[id number] Oral 300 / 300 600 / 600 Other: Meal Breakfast Percent of Meal Consumed 100% # Voids 1 1 5 Blood Glucose* 384 327 319 - Labs CBC & BMP: 09/05/17 04:15 09/05/17 04:15 Labs: Abnormal lab results RBC 3.15 M/mcL (3.82-4.97) L 09/05/17 04:15 Hgb 8.5 g/dL (11.5-15.4) L D 09/05/17 04:15 Hct 27.3 % (35.3-44.9) L 09/05/17 04:15 MCH 27.0 pg (28.0-33.3) L 09/05/17 04:15 MCHC 31.1 g/dL (31.6-35.5) L 09/05/17 04:15 RDW 17.5 % (11.5-14.5) H 09/05/17 04:15 Plt Count 78 K/mcL (140-400) L 09/05/17 04:15 Immature Plt Fraction 7.0 % (1.1-6.1) H 09/05/17 04:15 PT 15.3 Seconds (9.4-12.1) H 09/03/17 10:01 Sodium 131 mEq/L (136-145) L 09/05/17 04:15 Carbon Dioxide 21 mEq/L (23-29) L 09/05/17 04:15 Glucose 344 mg/dL (70-105) H 09/05/17 04:15 POC Glucose 319 (58-89) H 09/05/17 11:21 Magnesium 1.5 mg/dL (1.6-2.6) L 09/03/17 10:01 - VTE Documentation of Mechanical Device: Intermittent pneumatic compression device Consult Discharge Plan - Plan Referrals: NONE,PCP [Primary Care Provider] -
[2017-09-05] MEDS: Insulin DETEMIR 100 UNIT/ML X5UNITS SQ SCH (20:31)
[2017-09-05] MEDS: *HR* Morphine 2 MG/ML SYRINGE IVP PRN (20:32)
--- NOTE | 2017-09-05 23:46 | Internal Med Progress Note ---
Date of Encounter: 09/05/17 Time of Encounter: 11:43 - Assessment and plan (1) Intertrochanteric fracture of right femur Current Visit: Yes Status: Acute Assessment and plan: Status post nailing. Patient doing well. Management per Ortho. Okay to DC in AM if hemoglobin stable, was 10.0 yesterday and is now 8.5 today Need glucose <180 she is hyperglycemic in 300s. Will increase basal and meal time insulins. Sodium near normal after correcting for hyperglycemia. Qualifiers: Encounter type: initial encounter Fracture type: closed Fracture alignment: nondisplaced Qualified Code(s): S72.144A - Nondisplaced intertrochanteric fracture of right femur, initial encounter for closed fracture (2) Hyponatremia Current Visit: Yes Status: Acute Assessment and plan: Unsure of patient baseline. Will give gentle IV hydration to avoid over correction in case she runs this low normally. She does not seem to have any change in mental status to suggest acute drop in sodium. (3) Diabetes mellitus type 2 in nonobese Current Visit: Yes Status: Acute Assessment and plan: Diabetic diet, ISS (4) Liver cirrhosis, alcoholic Current Visit: Yes Status: Acute Qualifiers: Qualified Code(s): K70.30 - Alcoholic cirrhosis of liver without ascites (5) COPD (chronic obstructive pulmonary disease) Current Visit: Yes Status: Acute Qualifiers: Qualified Code(s): J44.9 - Chronic obstructive pulmonary disease, unspecified (6) Tobacco abuse Current Visit: Yes Status: Chronic - Subjective Interval history: No complaints, no acute events. Patient status post IM nailing of right hip for right femur fracture - Constitutional Vitals: Temp Pulse Resp BP Pulse Ox 99.0 F 76 16 112/55 98 09/05/17 19:48 09/05/17 19:48 09/05/17 19:48 09/05/17 19:48 09/05/17 19:48 Exam: Gen: NAD, AAOx3 CVS: RRR Lungs: CTAB Ext: no edema Internal Medicine: Result - Labs CBC & Chem 7: 09/05/17 04:15 09/05/17 04:15 Labs: Short CBC 09/05/17 Range/Units 04:15 WBC 8.2 (4.3-11.1) K/mcL Hgb 8.5 L D (11.5-15.4) g/dL Hct 27.3 L (35.3-44.9) % Plt Count 78 L (140-400) K/mcL Neutrophils # 6.2 (1.6-8.9) K/mcL BMP 09/05/17 04:15 Sodium 131 L Potassium 3.9 Chloride 101 Carbon Dioxide 21 L BUN 15 Creatinine 0.90 Glucose 344 H Calcium 8.6 - ABG Interpretation ABG results: PT/INR, D-dimer PT 15.3 Seconds (9.4-12.1) H 09/03/17 10:01 - VTE Documentation of Mechanical Device: Venous foot pump, device Consult Discharge Plan - Plan Referrals: NONE,PCP [Primary Care Provider] -
[2017-09-06] MEDS: *HR* Morphine 2 MG/ML SYRINGE IVP PRN ×2 (02:05→09:05)
[2017-09-06] MEDS: *HR* OxyCODONE Immed Rel 5 MG TABLET PO PRN ×2 (05:42→17:31)
[2017-09-06] MEDS: Famotidine 20 MG/2 ML VIAL IVP SCH ×2 (05:43→17:04)
[2017-09-06 06:06] LABS: Basophils % 0.2 %; Eosinophils % 2.2 %; Immature Granulocytes % 0.5 % (0-4); Mean Platelet Volume 10.9 fL (9.4-12.4); Monocytes % 17.7 %
[2017-09-06 06:07] LABS: Eosinophils # 0.1 K/mcL (0.0-0.6); Hematocrit 26.6 % (35.3-44.9); Hemoglobin 8.4 g/dL (11.5-15.4); Immature Platelets 6.8 % (1.1-6.1); Lymphocytes % 17.9 %; Mean Corpuscular HGB Conc 31.6 g/dL (31.6-35.5); Mean Corpuscular Hemoglobin 27.3 pg (28.0-33.3); Mean Corpuscular Volume 86.4 fL (83.0-100.0); Neutrophils # 3.4 K/mcL (1.6-8.9); Red Blood Count 3.08 M/mcL (3.82-4.97); Segmented Neutrophils % 61.5 %
[2017-09-06 06:13] LABS: BUN/Creatinine Ratio 15 (6-26); Blood Urea Nitrogen 10 mg/dL (8-23); Calcium 8.3 mg/dL (8.6-10.3); Carbon Dioxide 22 mEq/L (23-29); Chloride 101 mEq/L (98-107); Glucose 276 mg/dL (70-105); Osmolality,Calculated 279 (280-300); Platelet Count 70 K/mcL (140-400); Potassium 3.5 mEq/L (3.5-5.1); Sodium 130 mEq/L (136-145); eGFR For African Americans > 60 (> 60); eGFR For Non-African Americans > 60 (> 60)
[2017-09-06] MEDS: Lactulose Oral Soln 20 GM/30 ML UDC PO SCH ×3 (09:03→20:41)
[2017-09-06] MEDS: Insulin LISPRO 300 UNITS/3 ML VIAL SQ SCH ×7 (09:03→20:42)
[2017-09-06] MEDS: Magnesium Oxide 400 MG TABLET PO SCH (09:03)
[2017-09-06] MEDS: RIFAXIMIN 550 MG PO SCH ×2 (09:03→20:42)
--- NOTE | 2017-09-06 09:48 | Discharge Summary ---
Date of Encounter: 09/06/17 Time of Encounter: 09:48 - Discharge Diagnosis (1) Intertrochanteric fracture of right femur Priority: Primary Status: Acute Qualifiers: Encounter type: initial encounter Fracture type: closed Fracture alignment: nondisplaced Qualified Code(s): S72.144A - Nondisplaced intertrochanteric fracture of right femur, initial encounter for closed fracture (2) Hyponatremia Priority: Secondary Status: Acute (3) Diabetes mellitus type 2 in nonobese Priority: Secondary Status: Suspected Comments: Type 2 most likely, but patient has never had a formal workup for this. A1C was >14. Glucose was difficult to control. With body weight 55 kg, ideally her total daily dose would be 14 units of basal insulin. She required up to 20 units and stayed in high 200s and low 300s. She reports that 3 weeks ago she had blood tests and she had glucose in 300s at that time. Would like to get her glucose under 300 without causing her to have hypoglycemic symptoms. Will send her home with prescription of Lantus 30 units HS. (4) Liver cirrhosis, alcoholic Priority: Secondary Status: Acute Qualifiers: Ascites presence: without ascites Qualified Code(s): K70.30 - Alcoholic cirrhosis of liver without ascites (5) COPD (chronic obstructive pulmonary disease) Priority: Secondary Status: Acute Qualifiers: COPD type: unspecified COPD Qualified Code(s): J44.9 - Chronic obstructive pulmonary disease, unspecified (6) Tobacco abuse Priority: Secondary Status: Chronic - Discharge Medications Home Medications: Albuterol Sulfate [Albuterol Inhaler] 1 puff IH Q6HR PRN 09/02/17 [History] Atorvastatin [Lipitor] 20 mg PO HS 09/02/17 [History] Furosemide [Lasix] 40 mg PO DAILY 09/02/17 [History] Lactulose [Enulose] 30 ml PO TID 09/02/17 [History] Magnesium Oxide [Mgo] 400 mg PO DAILY 09/02/17 [History] Nadolol [Corgard] 40 mg PO BID 09/02/17 [History] Omeprazole [PriLOSEC] 20 mg PO BID 09/02/17 [History] Rifaximin [Xifaxan] 550 mg PO BID 09/02/17 [History] Tiotropium [Spiriva] 18 mcg IH DAILY 09/02/17 [History] Zinc Sulfate 220 mg PO DAILY 09/02/17 [History] Allergies/Adverse Reactions: 3 Allergy/AdvReac Type Severity Reaction Status Date / Time NSAIDS (Non-Steroidal AdvReac See Verified 09/03/17 10:01 Anti-Inflamma Comments Procedures/tests Complete & Pending: Procedures Performed prior 72 hours Category Date Time Status EV echocardiogram Stat Y 09/03/17 16:12 Completed Date of admission: 09/03/17 08:32 Primary care physician: PCP NONE Consults: 09/03/17 03:32 Consult to Nutrition [CONS] Routine Comment: Consulting Provider: NUTRITION Reason for Dietary Consult: MST Score Consult to Pastoral Services [CONS] Routine Comment: 09/03/17 08:32 Consult to Occupational Therapy [CONS] Routine Comment: Evaluate, develop and implement POC Reason for Consult: hip fracture Consult to Physical Therapy [CONS] Routine Comment: Evaluate, develop and implement POC Reason for Consult: hip fracture 09/03/17 11:14 Consult to Cardiology [CONS] Routine Comment: Consulting Provider: Oni Cowart Reason for Consult: preop clearance Call Completed: Yes 09/03/17 16:12 Consult to Physician [CONS] Routine Consulting Provider: Laci Yap Reason for Consult: right hip fracture Call Completed: Yes Discharging clinician: Terrance Stinson - Patient Status Disposition: Transfer SNF Condition: Fair Functional capacity at discharge: independent ambulation Overall status at discharge: patient is progressing back to baseline - Discharge Instructions Follow Up With: NONE,PCP [Primary Care Provider] - - Diet and Activity Activity: as per physical therapy Diet: diabetic diet Hospital course: Ms. Nguyen is a 66 year old female with history of alcoholic cirrhosis, recently diagnosed diabetes mellitus presents to the emergency room yesterday after a fall. She had a mechanical fall and had pain and evaluation in ED showed right femoral neck fracture. She was found to be hyponatremic with sodium at 125. No baseline labs were available and so she was cautiously given IV fluid hydration. She was able to get sodium to 130, corrected for hyperglycema was 133. Hyperglycemia was difficult to control running in high 200s and lower 300s. She runs about that same a few weeks ago as an outpatient. An A1C showed >14. She will be discharged with Roxycodone and Lantus 30 units with meal time insulin. Will change insulin type based on insurance approval. Pending SNF approval at time of discharge. Rx for Lantus 30 units at night, Rx for Short acting insulin with meals - Time Spent with Patient Total time spent providing and/or coordinating discharge services: - Constitutional Vitals: Temp Pulse Resp BP Pulse Ox 99.3 F 84 16 125/65 93 09/06/17 07:01 09/06/17 07:01 09/06/17 07:01 09/06/17 07:01 09/06/17 07:01 - Head Head exam: Present: atraumatic, normocephalic - Eye Eye exam: Present: PERRL, conjuntiva pink, sclera anicteric Pupils: Present: PERRL - Neck Neck exam general surgery: Present: supple, trachea midline. Absent: lymphadenopathy - Respiratory Respiratory exam: Present: CTAB. Absent: accessory muscle use, rales, rhonchi, wheezes - Cardiovascular Cardiovascular exam: Present: RRR, +S1, +S2. Absent: diastolic murmur, gallop, rubs, systolic murmur - GI/Abdominal GI/Abdominal exam: Present: normal bowel sounds, soft, no peritoneal signs. Absent: distended, tenderness - Extremities Exam Extremities exam: Present: warm, radial pulses palpable and symmetrical. Absent : calf tenderness, cyanotic, pedal edema - Neurological Exam Neurological exam: Present: CN II-XII intact, oriented X3, no focal deficits. Absent: pronater drift, facial droop, speech deficit - Skin Skin exam: Present: dry, intact - VTE Documentation of Mechanical Device: Venous foot pump, device
[2017-09-06] MEDS: Tiotropium 18 MCG inhalation IH SCH (10:12)
[2017-09-06 14:01] LABS: Estimated Average Glucose > 355 mg/dl; Hemoglobin A1C >= 14.1 %
--- NOTE | 2017-09-06 19:50 | Orthopedics Progress Note ---
Date of Encounter: 09/06/17 Time of Encounter: 19:48 Subjective Principal diagnosis: Right hip fracture Interval history: 09/04/2017. Patient is postoperative day #1 IM nailing right hip fracture. She is having anticipated pain and soreness about the hip. Otherwise feeling fairly well. Vital signs are stable. She is afebrile. She was are clean and dry. Neurovascular exam is stable. Impression: POD #1 IM nailing right intertrochanteric hip fracture Recommendation: Patient can be weightbearing as tolerated and ambulate ad vicky. PT and OT consults. immigration services officer for discharge planning, possible rehabilitation stay indicated. Patient can shower with intact dressings. 09/05/2017. Patient is postoperative day #2 IM nailing right hip. Pain is a little bit worse today but otherwise doing well. She has been ambulatory. She has been sitting in a chair quite a bit. Vital signs are stable. Patient is afebrile. Incision clean and dry. Her vascular exam is stable. Hemoglobin is 8.5. White blood cell count 8.2. Platelet count is 78 and stable. Sodium is improved. Blood sugars are still elevated, above 300. Impression: POD #2 IM nailing right hip Recommendation: Orthopedic status is stable. Patient can be weightbearing as tolerated. Patient can shower with an intact dressing. No bathing or soaking. No incision care is required other than maintaining the bio occlusive dressing. We will need to see me back in about 2-3 weeks' time or sooner should any problems arise. 09/05/2017. Postop day #3 IM nailing right hip. Patient doing quite well. Little complaints of pain. Ambulating well. Vital signs are stable. Patient is afebrile. Hemoglobin is 8.4 white count normal. Platelet count is 70, relatively stable. Impression: POD #3 IM nailing right hip Recommendations: As previously noted continue care as outlined. Weightbearing as tolerated, dressing does not need any care. Patient will see me back in the office in a few weeks' time after discharge. Objective Vital signs: Vital Signs Temp Pulse Resp BP Pulse Ox 09/06/17 17:03 99.3 F 78 16 112/60 96 09/06/17 10:54 98.9 F 75 15 124/69 96 09/06/17 10:14 16 93 09/06/17 07:01 99.3 F 84 16 125/65 93 09/06/17 02:00 96 09/05/17 23:49 99.1 F 78 14 116/56 93 Intake and Output 09/06/17 09/06/17 09/06/17 07:59 15:59 23:59 Other: Blood Glucose* 290 259 307 - Labs CBC & BMP: 09/06/17 05:42 09/06/17 05:42 Labs: Abnormal lab results RBC 3.08 M/mcL (3.82-4.97) L 09/06/17 05:42 Hgb 8.4 g/dL (11.5-15.4) L 09/06/17 05:42 Hct 26.6 % (35.3-44.9) L 09/06/17 05:42 MCH 27.3 pg (28.0-33.3) L 09/06/17 05:42 RDW 18.0 % (11.5-14.5) H 09/06/17 05:42 Plt Count 70 K/mcL (140-400) L 09/06/17 05:42 Immature Plt Fraction 6.8 % (1.1-6.1) H 09/06/17 05:42 PT 15.3 Seconds (9.4-12.1) H 09/03/17 10:01 Sodium 130 mEq/L (136-145) L 09/06/17 05:42 Carbon Dioxide 22 mEq/L (23-29) L 09/06/17 05:42 Glucose 276 mg/dL (70-105) H 09/06/17 05:42 POC Glucose 307 (58-89) H 09/06/17 17:06 Hemoglobin A1c >= 14.1 % (-5.6) H 09/06/17 05:42 Calculated Osmolality 279 (280-300) L 09/06/17 05:42 Calcium 8.3 mg/dL (8.6-10.3) L 09/06/17 05:42 Magnesium 1.5 mg/dL (1.6-2.6) L 09/03/17 10:01 - VTE Documentation of Mechanical Device: Venous foot pump, device Consult Discharge Plan - Plan Referrals: NONE,PCP [Primary Care Provider] -
[2017-09-06] MEDS: Insulin DETEMIR 100 UNIT/ML X5UNITS SQ SCH (20:46)
[2017-09-06] MEDS ORDERED: Insulin DETEMIR 100 UNIT/ML X5UNITS SQ SCH (21:00)
[2017-09-07] MEDS ORDERED: Saline Nasal Spray 44 ML BOTTLE NS PRN (04:42)
[2017-09-07] MEDS: Famotidine 20 MG/2 ML VIAL IVP SCH ×2 (06:01→16:33)
[2017-09-07] MEDS: Insulin LISPRO 300 UNITS/3 ML VIAL SQ SCH ×7 (09:05→20:38)
[2017-09-07] MEDS: Magnesium Oxide 400 MG TABLET PO SCH (09:05)
[2017-09-07] MEDS: Lactulose Oral Soln 20 GM/30 ML UDC PO SCH ×3 (09:05→20:37)
[2017-09-07] MEDS: RIFAXIMIN 550 MG PO SCH ×2 (09:06→20:37)
[2017-09-07] MEDS: *HR* OxyCODONE Immed Rel 5 MG TABLET PO PRN ×2 (09:16→16:04)
[2017-09-07] MEDS: Tiotropium 18 MCG inhalation IH SCH (10:30)
--- NOTE | 2017-09-07 17:37 | Internal Med Progress Note ---
Date of Encounter: 09/07/17 Time of Encounter: 17:36 - Subjective Interval history: Inteval changes: POD #4 s/p IM nailing rt. Hip A&O x3 in NAD pain controlled. C/o dry nose but no other significant symptoms. Physical exam: See below Assessment and Plan: Hip fracture: PT/OT F/u with orthopedic surgery Continue Morphine and roxicodone Diabetes mellitus type 2 Type 2 most likely, but patient has never had a formal workup for this. A1C was >14. Glucose was difficult to control. With body weight 55 kg, ideally her total daily dose would be 14 units of basal insulin. She required up to 20 units and stayed in high 200s and low 300s. She reports that 3 weeks ago she had blood tests and she had glucose in 300s at that time. Would like to get her glucose under 300 without causing her to have hypoglycemic symptoms. Will send her home with prescription of Lantus 30 units HS. COPD (chronic obstructive pulmonary disease) Tobacco abuse - Constitutional Vitals: Temp Pulse Resp BP Pulse Ox 99.0 F 71 16 108/62 97 09/07/17 16:15 09/07/17 16:15 09/07/17 16:15 09/07/17 16:15 09/07/17 16:15 - Head Head exam: Present: atraumatic, normocephalic - Eye Eye exam: Present: PERRL, conjuntiva pink, sclera anicteric Pupils: Present: PERRL - ENT ENT exam: Present: mucous membranes dry - Neck Neck exam general surgery: Present: supple, trachea midline. Absent: lymphadenopathy - Respiratory Respiratory exam: Present: CTAB. Absent: accessory muscle use, rales, rhonchi, wheezes - Cardiovascular Cardiovascular exam: Present: RRR, +S1, +S2. Absent: diastolic murmur, gallop, rubs, systolic murmur - GI/Abdominal GI/Abdominal exam: Present: normal bowel sounds, soft, no peritoneal signs. Absent: distended, tenderness - Extremities Exam Extremities exam: Present: warm, radial pulses palpable and symmetrical. Absent : calf tenderness, cyanotic, pedal edema - Neurological Exam Neurological exam: Present: CN II-XII intact, oriented X3, no focal deficits. Absent: pronater drift, facial droop, speech deficit - Skin Skin exam: Present: dry, intact Internal Medicine: Result - Labs CBC & Chem 7: 09/06/17 05:42 09/06/17 05:42 - ABG Interpretation ABG results: PT/INR, D-dimer PT 15.3 Seconds (9.4-12.1) H 09/03/17 10:01 - VTE Documentation of Mechanical Device: Intermittent pneumatic compression device Consult Discharge Plan - Plan Referrals: NONE,PCP [Primary Care Provider] -
--- NOTE | 2017-09-07 19:55 | Orthopedics Progress Note ---
Date of Encounter: 09/07/17 Time of Encounter: 19:53 Subjective Principal diagnosis: Right hip fracture Interval history: 09/04/2017. Patient is postoperative day #1 IM nailing right hip fracture. She is having anticipated pain and soreness about the hip. Otherwise feeling fairly well. Vital signs are stable. She is afebrile. She was are clean and dry. Neurovascular exam is stable. Impression: POD #1 IM nailing right intertrochanteric hip fracture Recommendation: Patient can be weightbearing as tolerated and ambulate ad vicky. PT and OT consults. auto specialty services manager for discharge planning, possible rehabilitation stay indicated. Patient can shower with intact dressings. 09/05/2017. Patient is postoperative day #2 IM nailing right hip. Pain is a little bit worse today but otherwise doing well. She has been ambulatory. She has been sitting in a chair quite a bit. Vital signs are stable. Patient is afebrile. Incision clean and dry. Her vascular exam is stable. Hemoglobin is 8.5. White blood cell count 8.2. Platelet count is 78 and stable. Sodium is improved. Blood sugars are still elevated, above 300. Impression: POD #2 IM nailing right hip Recommendation: Orthopedic status is stable. Patient can be weightbearing as tolerated. Patient can shower with an intact dressing. No bathing or soaking. No incision care is required other than maintaining the bio occlusive dressing. We will need to see me back in about 2-3 weeks' time or sooner should any problems arise. 09/06/2017. Postop day #3 IM nailing right hip. Patient doing quite well. Little complaints of pain. Ambulating well. Vital signs are stable. Patient is afebrile. Hemoglobin is 8.4 white count normal. Platelet count is 70, relatively stable. Impression: POD #3 IM nailing right hip Recommendations: As previously noted continue care as outlined. Weightbearing as tolerated, dressing does not need any care. Patient will see me back in the office in a few weeks' time after discharge. 09/07/2017. Patient postop day #4 IM nailing right hip. Patient is making daily improvements. Awaiting discharge authorization. Little pain. Vital signs are stable. She is afebrile. Dressings remain clean and dry. Impression: POD #4 IM nailing right hip Plan: As fully outlined previously continue weightbearing as tolerated. Follow up with me in 2-3 weeks' time. Objective Vital signs: Vital Signs Temp Pulse Resp BP Pulse Ox 09/07/17 16:15 99.0 F 71 16 108/62 97 09/07/17 11:05 98.4 F 76 17 127/57 98 09/07/17 10:31 16 96 09/07/17 06:42 99.5 F 82 16 113/49 97 09/07/17 04:33 18 98 09/07/17 03:55 98.0 F 75 17 121/61 95 09/06/17 23:57 98.2 F 77 15 120/66 97 09/06/17 20:38 98.1 F 79 18 122/68 97 Intake and Output 09/07/17 09/07/17 09/07/17 07:59 15:59 23:59 Intake Total 1320 / 1320 240 / 240 Balance 1320 / 1320 240 / 240 Intake: Oral 1320 / 1320 240 / 240 Other: Meal Breakfast Dinner Percent of Meal Consumed 100% 75% # Voids 1 2 Weight 55.2 kg Blood Glucose* 269 274 248 Patient Weight 09/07/17 23:59 Weight 55.2 kg - Labs CBC & BMP: 09/06/17 05:42 09/06/17 05:42 Labs: Abnormal lab results RBC 3.08 M/mcL (3.82-4.97) L 09/06/17 05:42 Hgb 8.4 g/dL (11.5-15.4) L 09/06/17 05:42 Hct 26.6 % (35.3-44.9) L 09/06/17 05:42 MCH 27.3 pg (28.0-33.3) L 09/06/17 05:42 RDW 18.0 % (11.5-14.5) H 09/06/17 05:42 Plt Count 70 K/mcL (140-400) L 09/06/17 05:42 Immature Plt Fraction 6.8 % (1.1-6.1) H 09/06/17 05:42 PT 15.3 Seconds (9.4-12.1) H 09/03/17 10:01 Sodium 130 mEq/L (136-145) L 09/06/17 05:42 Carbon Dioxide 22 mEq/L (23-29) L 09/06/17 05:42 Glucose 276 mg/dL (70-105) H 09/06/17 05:42 POC Glucose 274 (58-89) H 09/07/17 11:03 Hemoglobin A1c >= 14.1 % (-5.6) H 09/06/17 05:42 Calculated Osmolality 279 (280-300) L 09/06/17 05:42 Calcium 8.3 mg/dL (8.6-10.3) L 09/06/17 05:42 Magnesium 1.5 mg/dL (1.6-2.6) L 09/03/17 10:01 - VTE Documentation of Mechanical Device: Intermittent pneumatic compression device Consult Discharge Plan - Plan Referrals: NONE,PCP [Primary Care Provider] -
[2017-09-07] MEDS: Insulin DETEMIR 100 UNIT/ML X5UNITS SQ SCH (20:38)
[2017-09-08] MEDS: *HR* OxyCODONE Immed Rel 5 MG TABLET PO PRN ×3 (02:14→12:57)
[2017-09-08] MEDS: Famotidine 20 MG/2 ML VIAL IVP SCH (06:23)
[2017-09-08] MEDS: Insulin LISPRO 300 UNITS/3 ML VIAL SQ SCH ×2 (08:11)
[2017-09-08] MEDS: Lactulose Oral Soln 20 GM/30 ML UDC PO SCH (08:12)
[2017-09-08] MEDS: Magnesium Oxide 400 MG TABLET PO SCH (08:12)
[2017-09-08] MEDS: RIFAXIMIN 550 MG PO SCH (08:13)
[2017-09-08] MEDS: Tiotropium 18 MCG inhalation IH SCH (10:11)
[2017-09-08 11:03] VITALS: BP 116/60
[2017-09-08] MEDS ORDERED: D5% in Water 1,000 ML IVC PRN (11:51)
[2017-09-08] MEDS ORDERED: Dextrose Gel 15 GM/37.5 ML TUBE PO PRN ×2 (11:51)
[2017-09-08] MEDS ORDERED: *HR* Dextrose 50 % in Water (Syg) 50 ML SYRINGE IVP PRN (11:51)
--- NOTE | 2017-09-08 12:07 | Discharge Summary ---
Date of Encounter: 09/08/17 Time of Encounter: 12:00 - Discharge Medications Prescriptions: metFORMIN [Glucophage] 500 mg PO BIDWM 30 Days #60 tablet Home Medications: Albuterol Sulfate [Albuterol Inhaler] 1 puff IH Q6HR PRN 09/02/17 [History] Atorvastatin [Lipitor] 20 mg PO HS 09/02/17 [History] Furosemide [Lasix] 40 mg PO DAILY 09/02/17 [History] Lactulose [Enulose] 30 ml PO TID 09/02/17 [History] Magnesium Oxide [Mgo] 400 mg PO DAILY 09/02/17 [History] Nadolol [Corgard] 40 mg PO BID 09/02/17 [History] Omeprazole [PriLOSEC] 20 mg PO BID 09/02/17 [History] Rifaximin [Xifaxan] 550 mg PO BID 09/02/17 [History] Tiotropium [Spiriva] 18 mcg IH DAILY 09/02/17 [History] Zinc Sulfate 220 mg PO DAILY 09/02/17 [History] metFORMIN [Glucophage] 500 mg PO BIDWM 30 Days #60 tablet 09/08/17 [Rx] Allergies/Adverse Reactions: 3 Allergy/AdvReac Type Severity Reaction Status Date / Time NSAIDS (Non-Steroidal AdvReac See Verified 09/03/17 10:01 Anti-Inflamma Comments Date of admission: 09/03/17 08:32 Primary care physician: PCP NONE Consults: 09/03/17 03:32 Consult to Nutrition [CONS] Routine Comment: Consulting Provider: NUTRITION Reason for Dietary Consult: MST Score Consult to Pastoral Services [CONS] Routine Comment: 09/03/17 08:32 Consult to Occupational Therapy [CONS] Routine Comment: Evaluate, develop and implement POC Reason for Consult: hip fracture Consult to Physical Therapy [CONS] Routine Comment: Evaluate, develop and implement POC Reason for Consult: hip fracture 09/03/17 11:14 Consult to Cardiology [CONS] Routine Comment: Consulting Provider: Cardiology Sofya Reason for Consult: preop clearance Call Completed: Yes 09/03/17 16:12 Consult to Physician [CONS] Routine Consulting Provider: Laci Yap Reason for Consult: right hip fracture Call Completed: Yes 09/07/17 08:00 Consult to Database Security Expert [CONS] Routine Comment: Reason for Consult: New diagnosis diabetes. Discharging clinician: Tomy Archer - Patient Status Disposition: Transfer SNF Condition: Fair - Discharge Instructions Follow Up With: NONE,PCP [Primary Care Provider] - Hospital course: Ms. Nguyen is a 66 year old female - Time Spent with Patient Total time spent providing and/or coordinating discharge services: - Constitutional Vitals: Temp Pulse Resp BP Pulse Ox 98.7 F 76 16 116/60 95 09/08/17 11:00 09/08/17 11:00 09/08/17 11:00 09/08/17 11:00 09/08/17 11:00 - VTE Documentation of Mechanical Device: Intermittent pneumatic compression device
[2017-09-08] MEDS ORDERED: Insulin LISPRO 300 UNITS/3 ML VIAL SQ SCH (16:30)
[2017-09-08] MEDS ORDERED: *HR* Metformin 500 MG TABLET PO SCH (17:00)
== END 2017-09-08 14:59 | disposition other institution (70) | DRG 481 ==
LOC: 3NENU
PROVIDERS: ADMIT Internal Medicine; ATTEND Internal Medicine

== ENCOUNTER 2017-11-03 10:56 | Inpatient (IN) ==
--- NOTE | 2017-11-03 11:34 | History & Physical Report ---
Date of Encounter: 11/03/17 Time of Encounter: 11:25 24 Hour HP Update - Instructions Instructions: If the History and Physical is less than 30 days old and was completed prior to A.M. admission and or procedure and has NOT been updated on calendar day of procedure please complete this update prior to performing procedure. - Update Patient reports changes in Medical Condition: No Changes in examination, assessment, or condition: No Changes in Medication: No Preop tests/diagnostics Reviewed: Yes Surgery Remains Indicated: Yes Consent for Planned Operative Procedure(s) Verified: Yes - Pre-Operative Checklist Preoperative Checklist Indicated: Yes Prophylactic Antibiotic Ordered: Yes (Vancomycin due to MRSA risk) Home Medications Include Beta Kristina: Yes Beta Kristina Taken Today (Day of Surgery): Yes Beta Kristina Taken Yesterday (Day Prior to Surgery): Yes Is VTE Prophylaxis Indicated?: Yes
--- NOTE | 2017-11-03 11:49 | Anesthesia Evaluation PreOp ---
Date of Encounter: 11/03/17 Time of Encounter: 11:45 - Past History Planned Operation: Left CEA Cardiac History: HTN, Hyperlipidemia, Other (Thrombocytopenia) Pulmonary History: Smoker, Asthma HEALTH AID History: Denies Any Significant HX Other Medical History: Diabetes Type II Anesthesia History: No Prior Anesthetic Complications : No Alcohol Use: none Drug use: none Medications and Allergies Albuterol Sulfate [Albuterol Inhaler] 1 puff IH Q6HR PRN 09/02/17 [History] Atorvastatin [Lipitor] 20 mg PO HS 09/02/17 [History] Lactulose [Enulose] 30 ml PO TID 09/02/17 [History] Nadolol [Corgard] 40 mg PO BID 09/02/17 [History] Omeprazole [PriLOSEC] 20 mg PO BID 09/02/17 [History] Rifaximin [Xifaxan] 550 mg PO BID 09/02/17 [History] Tiotropium [Spiriva] 18 mcg IH DAILY 09/02/17 [History] Zinc Sulfate 220 mg PO DAILY 09/02/17 [History] Ascorbic Acid [C-500] 500 mg PO DAILY #30 tablet 09/15/17 [Rx] Cholecalciferol (D-3) [Vitamin D] 2,000 unit PO DAILY #60 tablet 09/15/17 [Rx] Ferrous Sulfate 325 mg PO DAILY #30 tablet 09/15/17 [Rx] Furosemide [Lasix] 20 mg PO DAILY #0 09/15/17 [Rx] Magnesium Oxide [Mgo] 400 mg PO BID #14 tablet 09/15/17 [Rx] Metformin HCl [Glucophage] 1,000 mg PO BID #60 tablet 09/15/17 [Rx] Potassium Chloride 20 meq PO DAILY #7 tab.er.prt 09/15/17 [Rx] Sitagliptin Phosphate [Januvia] 50 mg PO DAILY #30 tab 09/15/17 [Rx] 3 Allergy/AdvReac Type Severity Reaction Status Date / Time NSAIDS (Non-Steroidal AdvReac See Verified 09/03/17 10:01 Anti-Inflamma Comments - Meds/Allergy Pre-op Review Medications Reviewed: Yes Allergies Reviewed: Yes Beta Blockers on Current Med List: Yes (Nadolol last night 1999) Anesthesia Results - Labs Laboratory Tests 03/16/18 03/16/18 03/16/18 14:40 14:40 14:40 Hgb 11.3 L Hct 34.3 L Plt Count 69 L PT 15.2 H INR 1.4 APTT 35.6 Sodium 138 Potassium 4.3 BUN 13 Creatinine 0.79 - Imaging EKG: report reviewed (SR) Additional studies: EF 60%, Stress Test negative Anesthesia Exam O2 Sat Height 1.68 m Height 1.68 m Weight 57.153 kg Weight 57.153 kg O2 Sat by Pulse Oximetry 97 Vital Signs Temp Pulse Resp BP Pulse Ox 98.8 F 69 18 98/56 97 11/03/17 11:48 11/03/17 11:48 11/03/17 11:48 11/03/17 11:48 11/03/17 11:48 Height: 5'6 Weight: 126 lbs NPO (# of Hours): MN - HEENT Pupil (Motor): Pupils equal, EOMI Mallampati: II Oral Opening: Greater than 3 - HEALTH AID LOC: Oriented HEALTH AID Motor: Normal RUE, Normal LUE, Normal RLE, Normal LLE, Normal Face HEALTH AID Sensory: Normal: RUE, LUE, RLE, LLE, Face - Cardiac Rhythm: Regular Murmur: None JVD: No Carotid Bruit: No - Pulmonary Breath Sounds: bilateral Clear Respiratory Effort: Symmetrical Anesthesia Assess/Plan ASA Score: 3 (HTN PVD DM) Modified [place] Scale for Level of Consciousness: Cooperative, oriented, and tranquil Anesthetic Plan: General Monitoring Plan: Standard Monitors, A-Line Recovery Plan: PACU (Discussed GA, A-line, agrees to proceed)
[2017-11-03] MEDS ORDERED: Acetaminophen IV 1,000 MG/100 ML INFUS..BTL IVPB ONE (11:53)
[2017-11-03] MEDS ORDERED: Famotidine 20 MG/2 ML VIAL IVP ONE (11:53)
[2017-11-03] MEDS ORDERED: Albuterol 2.5 MG/3 ML NEBULIZER IH ONE (11:59)
[2017-11-03] MEDS ORDERED: Lidocaine -MPF 1% 2 ML VIAL ID ONE (11:59)
[2017-11-03] MEDS ORDERED: CeFAZolin Syr 2,000MG/20 ML 2,000 MG/20 ML SYRINGE IVPB ONE (11:59)
[2017-11-03] MEDS ORDERED: Ringers Solution, Lactated 1,000 ML IVC SCH ×2 (12:00→15:30)
[2017-11-03] MEDS ORDERED: Vancomycin 1,000 MG, Sodium Chloride IRRigation 1,000 ML IR ONE (12:35)
[2017-11-03] MEDS ORDERED: *HR* FentaNYL (PF) 100 MCG/2 ML VIAL ONE ×2 (12:48→17:18)
[2017-11-03] MEDS ORDERED: *HR* Midazolam HCl 2 MG/2 ML VIAL ONE (12:49)
[2017-11-03] MEDS ORDERED: *HR* Etomidate 40 MG/20 ML VIAL IVP ONE (12:49)
[2017-11-03] MEDS ORDERED: *HR* Propofol 200 MG/20 ML VIAL IVP ONE (12:49)
[2017-11-03] MEDS ORDERED: Lidocaine -MPF 2% 2 ML VIAL ONE ×2 (12:50→13:40)
[2017-11-03] MEDS ORDERED: Lidocaine -MPF 4% 5 ML AMPUL ONE (12:50)
[2017-11-03] MEDS ORDERED: *HR* PHENYLEPHRINE 1,000 MCG/10 ML SYRINGE IVP ONE ×3 (12:55→15:07)
[2017-11-03] MEDS ORDERED: Bupivacaine-MPF 0.25% 10 ML VIAL ONE (13:30)
[2017-11-03] MEDS ORDERED: Protamine Sulfate 50 MG/5 ML VIAL IVP ONE (13:30)
[2017-11-03] MEDS ORDERED: Heparin 1,000 UNITS/500 mL 1,500 ML ONE (13:31)
[2017-11-03] MEDS ORDERED: *HR* Rocuronium Bromide 50 MG/5 ML VIAL ONE (13:51)
[2017-11-03] MEDS ORDERED: *HR* Remifentanil 2 MG VIAL IVP ONE (13:53)
[2017-11-03] MEDS ORDERED: *HR* Succinylcholine 200 MG/10 ML VIAL IVP ONE (14:18)
--- NOTE | 2017-11-03 14:24 | Anesthesia Procedures ---
Date of Encounter: 11/03/17 Time of Encounter: 13:00 Procedures: Anesthesia - Arterial Line Consent obtained: written consent Time out performed: Yes Sedation: Fentanyl (mcg): 50 Local Anesthetic: Lidocaine 1% Size (Gauge): 20 Length (inches): 1 3/4 Technique Used: sterile prep, guide wire technique, direct puncture technique Post-Procedure: line taped into place Patient tolerated procedure: no complications Complications: none Site: Radial R Vitals: Vital Signs/O2 Sat/Glucose, Most Current Temp Pulse Resp BP Pulse Ox 11/03/17 13:29 76 18 128/60 95 11/03/17 13:24 73 18 128/62 97 11/03/17 11:48 98.8 F 69 18 98/56 97
[2017-11-03] MEDS ORDERED: Vancomycin 1,000 MG VIAL ONE (14:25)
[2017-11-03] MEDS ORDERED: *HR* Heparin 5,000 UNIT/ML VIAL ONE (14:56)
[2017-11-03] MEDS ORDERED: Heparin 1,000 UNITS/500 mL 500 ML ONE (14:59)
[2017-11-03] MEDS ORDERED: Ondansetron 4 MG/2 ML VIAL ONE (15:17)
[2017-11-03] MEDS ORDERED: Dexamethasone 4 MG/ML VIAL ONE (15:21)
[2017-11-03] MEDS ORDERED: *HR* Phenylephrine 10 MG/ML VIAL ONE (15:23)
[2017-11-03] MEDS ORDERED: Ondansetron 4 MG/2 ML VIAL IVP ONE (15:28)
[2017-11-03] MEDS ORDERED: *HR* OxyCODONE/APAP 5/325 TABLET PO PRN (15:28)
[2017-11-03] MEDS ORDERED: MORPHINE SUL Oral CONC 10 MG/0.5 ML ORAL.SYG SL PRN (15:28)
[2017-11-03] MEDS ORDERED: *HR* Labetalol 20 MG/4 ML SYRINGE IVP PRN ×2 (15:28→17:45)
[2017-11-03] MEDS ORDERED: Neostigmine Methylsulfate 3 MG/3 ML SYRINGE ONE (16:23)
--- NOTE | 2017-11-03 17:15 | Operative Note ---
Date of procedure: 11/03/17 Pre-op diagnosis: 80-99% Left internal carotid artery stenosis Post-op diagnosis: same Procedure: Left carotid endarterectomy with hemashield patch angioplasty Complications: None Anesthesia: GETA Surgeon: Tye Martinez Was there an life enrichment assistant present: No Estimated blood loss (cc): 50 Specimen: left carotid plaque Condition: stable Disposition: same day Procedure in Detail: Indications: The patient is a 66 year old female who was found to have an 80-99 % left internal carotid artery stenosis. Carotid endarterectomy was recommended to reduce her risk of cerebrovascular accident. Procedure: The patient was identified in the preoperative area. The risks, benefits, and alternatives of the procedure were discussed and all questions were answered. The patient was then taken to the operating room and placed in supine position on the operating table. After the induction of general endotracheal anesthesia, the patient was cleaned and draped in normal sterile fashion. A longitudinal incision was made anterior to the left sternocleidomastoid muscle. Hemostasis was obtained via electrocautery. Through a process of blunt , sharp, and electrocautery dissection, the platysma was traversed and the jugular vein was identified. The facial vein was dissected, clamped, divided and ligated with a 2-0 silk suture ligature. The jugular vein was retracted to expose the carotid bifurcation. The patient received 2000 units of heparin intravenously at this time. Proximal dissection of the common and external carotid arteries were performed circumferentially. Dissection of the internal carotid was performed circumferentially. Vessels loops were passed around the internal and external carotid and an umbilical tape was passed from the common carotid artery. The patient received additional 3000 units of heparin intravenously. After waiting adequate time for the heparin to circulate, the vessels were occluded and a longitudinal arteriotomy was made into the common carotid artery extending into the internal carotid beyond the plaque. The plaque was long and was heavily calcified. Vigorous pulsatile retrograde flow was noted from the internal carotid artery upon release of the vessel loop. Due to the brisk pulsatile retrograde flow, no shunt was placed. A dental [place] was then used to perform a standard endarterectomy. Proximal and distal endpoints were inspected and no elevated flaps were noted. A Hemashield patch was cut to fit the defect and sutured in place with running 6 -0 Prolene. Prior to completing the closure, each vessel was flushed and then reoccluded. Heparinized saline was infused into the lumen. The patch was completed. Flow was restored in the external carotid artery, followed the common carotid artery, lastly the internal carotid artery was opened. A low resistance arterialized signal was present within the internal carotid artery beyond the patch. Thrombin and Gelfoam were used to aid in hemostasis. Meticulous hemostasis was obtained throughout the wound with electrocautery. Platelet rich and platelet poor plasma were infused into the wounds. The sternocleidomastoid was reapproximated with interrupted 3-0 Vicryl. Platelet rich and platelet poor plasma were infused into the wound. A TLS drain was brought through a separate stab incision and sutured in place with 0 silk suture. The platysma was reapproximated with running 3-0 Vicryl. Local anesthetic was infused in the skin. A 3-0 Monocryl was used to reapproximate the skin. A sterile dressing was applied. The patient was extubated, taken to the recovery room in stable condition.
--- NOTE | 2017-11-03 17:37 | Anesthesia Evaluation Post Op ---
Date of Encounter: 11/03/17 Time of Encounter: 17:40 - Vital Signs Vital Signs: Vital Signs/O2 Sat/Glucose, Most Current Temp Pulse Resp BP Pulse Ox 11/03/17 17:32 98.6 F 68 12 143/64 98 11/03/17 17:22 69 12 151/69 94 11/03/17 17:12 73 16 149/76 100 11/03/17 17:02 97.4 F L 81 14 136/74 100 - Lungs Lungs: Clear Ascult./Percussion - Airway Airway: Non-obstructed - Cardiovascular Regular Rate - Mental Status Mental Status: Alert & Oriented, Answers Appropriately - Pain Pain Scale: 2 - Nausea Vomiting Nausea Vomiting: Not Present - Hydration Hydration: Ice chips, [place] catheter - Discharge PostOp Status: Transfer Patient to floor
[2017-11-03] MEDS ORDERED: *HR* Dextrose 50 % in Water (Syg) 50 ML SYRINGE IVP PRN (17:45)
[2017-11-03] MEDS ORDERED: *HR* HYDROcodone/Acet 5/325 mg TABLET PO PRN (17:45)
[2017-11-03] MEDS ORDERED: 0.9 % Sodium Chloride 1,000 ML IVC SCH (17:45)
[2017-11-03] MEDS ORDERED: Dextrose Gel 15 GM/37.5 ML TUBE PO PRN ×2 (17:45)
[2017-11-03] MEDS ORDERED: D5% in Water 1,000 ML IVC PRN (17:45)
[2017-11-03] MEDS ORDERED: Naloxone 0.4 MG/ML INJ IVP PRN (17:45)
[2017-11-03] MEDS ORDERED: *HR* OxyCODONE Immed Rel 5 MG TABLET PO PRN (17:45)
[2017-11-03] MEDS ORDERED: Ondansetron 4 MG/2 ML VIAL IVP PRN (17:45)
[2017-11-03] MEDS ORDERED: Acetaminophen 325 MG TABLET PO PRN (17:45)
[2017-11-03] MEDS: *HR* Metoprolol 5 MG/5 ML VIAL IVP SCH (18:22)
[2017-11-03] MEDS: CeFAZolin Premix DUPLEX 2,000 MG/50 ML BAG IVPB SCH (19:43)
[2017-11-03] MEDS ORDERED: Insulin LISPRO 300 UNITS/3 ML VIAL SQ SCH (21:00)
[2017-11-04] MEDS: *HR* Metoprolol 5 MG/5 ML VIAL IVP SCH ×2 (00:34→05:57)
[2017-11-04] MEDS ORDERED: Vancomycin 1,000 MG in D5% in Water 250 ML IVPB ONE (01:00)
[2017-11-04] MEDS: CeFAZolin Premix DUPLEX 2,000 MG/50 ML BAG IVPB SCH (03:32)
[2017-11-04] MEDS ORDERED: *HR* Heparin 5,000 UNIT/ML VIAL SQ SCH ×2 (06:00)
[2017-11-04 07:17] VITALS: BP 120/57
[2017-11-04] MEDS ORDERED: Insulin LISPRO 300 UNITS/3 ML VIAL SQ SCH (07:30)
--- NOTE | 2017-11-04 07:43 | Discharge Summary ---
Orders not resulted at time of discharge: Pending orders 11/03/17 17:06 Surgical Pathology [PTH] Routine Date of Encounter: 11/04/17 Time of Encounter: 07:45 - Discharge Diagnosis (1) Carotid stenosis, left Priority: Primary Status: Chronic Comments: She is post operative day #1 after a left carotid endarterectomy. She has no neurologic deficits. She is tolerating a diet and her pain is controlled. She will be discharged today. (2) Diabetes mellitus type 2 in nonobese Priority: Secondary Status: Chronic (3) COPD (chronic obstructive pulmonary disease) Priority: Secondary Status: Chronic Qualifiers: COPD type: emphysema Emphysema type: panlobular Qualified Code(s): J43.1 - Panlobular emphysema (4) Tobacco abuse Priority: Secondary Status: Chronic (5) Chronic disease anemia Priority: Secondary Status: Chronic (6) Liver cirrhosis, alcoholic Priority: Secondary Status: Chronic Qualifiers: Ascites presence: without ascites Qualified Code(s): K70.30 - Alcoholic cirrhosis of liver without ascites - Hospital Course Hospital course: Ms. Nguyen is a 66 year old female admitted on 11/03/17. She underwent a left carotid endarterectomy and tolerated the procedure well. She was discharged in stable condition on postoperative day #1 without complications. - Time Spent with Patient Total time spent providing and/or coordinating discharge services: - Discharge Medications Prescriptions: OxyCODONE Immed Rel [Roxicodone 5 MG] 5 mg PO Q6HR PRN 3 Days #12 tablet PRN Reason: postoperative pain Home Medications: Albuterol Sulfate [Albuterol Inhaler] 1 puff IH Q6HR PRN 09/02/17 [History] Atorvastatin [Lipitor] 20 mg PO HS 09/02/17 [History] Nadolol [Corgard] 40 mg PO BID 09/02/17 [History] Omeprazole [PriLOSEC] 20 mg PO BID 09/02/17 [History] Rifaximin [Xifaxan] 550 mg PO BID 09/02/17 [History] Furosemide [Lasix] 20 mg PO DAILY #0 09/15/17 [Rx] Sitagliptin Phosphate [Januvia] 50 mg PO DAILY #30 tab 09/15/17 [Rx] Aspirin [Lo-Dose Aspirin EC] 81 mg PO DAILY 11/03/17 [History] Spironolactone [Aldactone] 100 mg PO DAILY 11/03/17 [History] Umeclidinium [place] [Incruse Ellipta] 1 puff IH DAILY 11/03/17 [History] metFORMIN [Glucophage] 500 mg PO BIDWM 11/03/17 [History] OxyCODONE Immed Rel [Roxicodone 5 MG] 5 mg PO Q6HR PRN 3 Days #12 tablet [Rx] Allergies/Adverse Reactions: 3 Allergy/AdvReac Type Severity Reaction Status Date / Time NSAIDS (Non-Steroidal AdvReac See Verified 11/03/17 11:54 Anti-Inflamma Comments Date of admission: 11/03/17 11:34 Primary care physician: Catrachita Villalobos Procedure(s) Performed: Left carotid endarterectomy Discharging clinician: Tye Del Castillo Anticipated date of discharge: 11/04/17 Exam Vital Signs, Last 4 Hours Temp Pulse Resp BP Pulse Ox 11/04/17 07:16 98.2 F 72 18 120/57 96 General: Present: Conversant, No Apparent Distress HEENT: Present: Trachea midline, Pupils equal Neck: Present: Other (incision clean, dry and intact without erythema or drainage, no hematoma, expected ecchymosis). Absent: JVD, Tracheal deviation Cardiac: Present: Reg Rate and Rhythm Lungs: Present: Normal Breath Sounds Neuro: Present: Alert and responsive, No focal deficits noted, Cranial nerves grossly intact, Motor nerves grossly intact, Sensory nerves grossly intact Abdomen: Present: Soft Vascular: Present: Normal capillary refill. Absent: Cyanosis, Edema Skin: Present: No rashes noted on visualized skin - Patient Status Disposition: Home, Self-Care Condition: Good Functional capacity at discharge: independent ambulation Overall status at discharge: patient is back to baseline - Discharge Instructions Instructions: Oxycodone, Rapid Release (By mouth), Carotid Endarterectomy (DC) , Peripheral Vascular Disorders (DC) Follow Up With: Catrachita Villalobos CNP [Primary Care Provider] - 11/10/17 10:30 am Tye Del Castillo MD [Partnered Physician] - 12/17/17 2:40 pm Additional Instructions: MAY REMOVE BANDAGE AND SHOWER ON 11/05/17. WASH WOUND GENTLY AND PAT TO DRY. NO DRIVING FOR [address] DEL CASTILLO AT [phone] WITH QUESTIONS OR CONCERNS. - Diet and Activity Activity: increase activity as tolerated Diet: advance to your usual diet - VTE Documentation of Mechanical Device: Intermittent pneumatic compression device
[2017-11-04] MEDS ORDERED: (Umeclidinium Bromide [Incruse Ellipta] 1 PUFF) IH SCH (09:00)
[2017-11-04] MEDS ORDERED: Aspirin Enteric Coated 81 MG Tablet PO SCH (09:00)
[2017-11-04] MEDS ORDERED: Furosemide 40 MG TABLET PO SCH (09:00)
== END 2017-11-04 10:35 | disposition home or self-care (01) | DRG 39 ==
LOC: SAMDAY 10:56 → 2NNU 11:34
PROVIDERS: ADMIT Surgery; ATTEND Surgery